=== PATIENT | male | born 1980 | race African-American/Black ===

== ENCOUNTER 2016-07-01 10:37 | Emergency (ER) | payer MEDICAID, OTHER ==
[~2016-07-01] VITALS: Ht 182.9 cm; Wt 122.5 kg
[2016-07-01 11:27] VITALS: BP 146/92
[2016-07-01] MEDS ORDERED: ONDANSETRON HCL 4 MG/2 ML VIAL IM ONE (11:30)
[2016-07-01] MEDS ORDERED: HYDROmorphone HCL 2 MG/ML VL IM ONE (11:30)
== END 2016-07-01 11:58 | disposition home or self-care (01) ==
LOC: ER 10:37
DX: G89.29 Other chronic pain (principal); M54.2 Cervicalgia; M25.512 Pain in left shoulder; M25.511 Pain in right shoulder
CPT/HCPCS: 96372; 99284; J1170; J2405

== ENCOUNTER 2018-10-18 14:44 | Emergency (ER) | payer MEDICAID ==
[~2018-10-18] VITALS: Ht 180.3 cm; Wt 113.4 kg
[2018-10-18 15:15] VITALS: BP 125/80
== END 2018-10-18 15:33 | disposition left against medical advice (07) ==
LOC: ER 14:44
DX: T78.40XA Allergy, unspecified, initial encounter (principal); Z53.21 Procedure and treatment not carried out due to patient leaving prior to being seen by health care provider; X58.XXXA Exposure to other specified factors, initial encounter

== ENCOUNTER 2018-10-19 08:39 | Emergency (ER) | payer MEDICAID ==
[~2018-10-19] VITALS: Ht 177.8 cm; Wt 113.4 kg
[2018-10-19 08:47] VITALS: BP 129/76
== END 2018-10-19 09:32 | disposition home or self-care (01) ==
LOC: ER 08:42
DX: L50.0 Allergic urticaria (principal)